=== PATIENT | female | born 1945 | race Caucasian/White ===

== ENCOUNTER 2020-07-29 17:10 | Emergency (ER) | payer OTHER ==
[2020-07-29 17:36] VITALS: TEMP 97.9; BMI 26.4
[2020-07-29 22:52] VITALS: BP 109/70; PULSE 62
== END 2020-07-29 22:53 | disposition home or self-care (01) ==
LOC: JER 17:10
DX: G89.18 Other acute postprocedural pain (principal); R19.5 Other fecal abnormalities
CPT/HCPCS: 36415; 82272; 99283-25

== ENCOUNTER 2021-08-02 22:05 | Observation (INO) | payer OTHER ==
[2021-08-02 22:17] VITALS: BMI 26.4
[2021-08-02 23:32] LABS: BASO % 0.5 % (0-2.0); EOS % 1.9 % (0-4.5); HEMATOCRIT 37.1 % (32.4-45.2); HEMOGLOBIN 12.7 GM/dL (10.7-15.3); LYMPH % 41.9 % (8-40); MCHC 34.3 g/dl (32.0-36.0); MEAN CELL VOLUME 90.3 fl (80-96); MEAN PLT VOLUME 9.3 fl (7.5-11.1); MONO % 8.4 % (3.8-10.2); NEUT % 47.3 % (42.8-82.8); PLATELET COUNT 270 10^3/uL (134-434); RBC 4.11 M/mm3 (3.60-5.2); RDW 12.6 % (11.6-15.6); WHITE BLOOD COUNT 6.3 K/mm3 (4.0-10.0)
[2021-08-02 23:40] LABS: INR 1.01 (0.83-1.09); PROTHROMBIN TIME (PATIENT) 11.6 SEC (9.7-13.0)
[2021-08-02 23:43] LABS: ACTIVATED PTT 29.7 SECONDS (25.2-36.5)
[2021-08-02 23:51] LABS: ALBUMIN 3.4 g/dl (3.4-5.0)
[2021-08-02 23:53] LABS: CREATININE 0.7 mg/dL (0.55-1.3)
[2021-08-02 23:55] LABS: BILIRUBIN,TOTAL 0.2 mg/dL (0.2-1); TOT PROT 6.7 g/dl (6.4-8.2)
[2021-08-03] MEDS ORDERED: ACETAMINOPHEN 1000 MG/100 ML BAG IVPB ONE (00:15)
[2021-08-03] MEDS ORDERED: LIDOCAINE 5% TOPICAL PATCH TP ONE (00:15)
[2021-08-03] MEDS ORDERED: LIDOCAINE 5% TOPICAL PATCH ONE (00:26)
[2021-08-03] MEDS ORDERED: ACETAMINOPHEN INJECTION 100 ML IVPB ONE (00:26)
[2021-08-03 01:10] LABS: CALCIUM 9.1 mg/dL (8.5-10.1)
[2021-08-03 01:11] LABS: ALBUMIN 3.4 g/dl (3.4-5.0); BLOOD UREA NITROGEN 21.1 mg/dL (7-18)
[2021-08-03 01:14] LABS: CREATININE 0.7 mg/dL (0.55-1.3)
[2021-08-03 01:16] LABS: BILIRUBIN,TOTAL 0.2 mg/dL (0.2-1); TOT PROT 6.5 g/dl (6.4-8.2)
[2021-08-03] MEDS ORDERED: ACETAMINOPHEN 325 MG TABLET (FP) PO PRN (06:00)
[2021-08-03] MEDS ORDERED: LEVOTHYROXINE NA 50 MCG TABLET (FP) PO SCH (07:00)
[2021-08-03] MEDS ORDERED: LEVOTHYROXINE NA 25 MCG TABLET (FP) ONE (07:31)
[2021-08-03] MEDS ORDERED: PANTOPRAZOLE 40 MG TABLET ONE (09:27)
[2021-08-03] MEDS ORDERED: PARoxetine HCL 10 MG TABLET ONE (09:28)
[2021-08-03] MEDS ORDERED: CLOPIDOGREL BISULFATE 75 MG TABLET (FP) ONE (09:28)
[2021-08-03] MEDS ORDERED: ASPIRIN COATED 81 MG TABLET.EC ONE (09:28)
[2021-08-03] MEDS ORDERED: PAROXETINE HCL 20 MG, PAROXETINE HCL 10 MG PO SCH (10:00)
[2021-08-03] MEDS ORDERED: ASPIRIN COATED 81 MG TABLET.EC PO SCH (10:00)
[2021-08-03] MEDS ORDERED: CLOPIDOGREL BISULFATE 75 MG TABLET (FP) PO SCH (10:00)
[2021-08-03] MEDS ORDERED: PARoxetine HCL 30 MG TABLET PO SCH (10:00)
[2021-08-03] MEDS ORDERED: PANTOPRAZOLE 40 MG TABLET PO SCH (10:00)
[2021-08-03 16:41] VITALS: BP 130/70; PULSE 71; TEMP 98.2
[2021-08-03] MEDS ORDERED: ATORVASTATIN CA 20 MG TABLET (FP) PO SCH (22:00)
[2021-08-03] MEDS ORDERED: LIDOCAINE PATCH REMOVAL MC SCH (22:00)
== END 2021-08-03 17:15 | disposition home or self-care (01) ==
LOC: JER 22:05 → JERBED 08-03 02:41
PROVIDERS: ADMIT Internal Medicine; ATTEND Family Medicine
PROC: 3E033NZ Introduction of Analgesics, Hypnotics, Sedatives into Peripheral Vein, Percutaneous Approach (ICD-10-PCS; principal; 2021-08-03)
DX: I25.10 Atherosclerotic heart disease of native coronary artery without angina pectoris (principal); I11.9 Hypertensive heart disease without heart failure; E11.9 Type 2 diabetes mellitus without complications; Z95.5 Presence of coronary angioplasty implant and graft; I77.1 Stricture of artery; E07.9 Disorder of thyroid, unspecified; E78.00 Pure hypercholesterolemia, unspecified; Z87.891 Personal history of nicotine dependence; M54.59 Other low back pain; R10.9 Unspecified abdominal pain
CPT/HCPCS: 36415; 71045-TC-FY; 71275-TC; 73502-TC-LT-FY; 74174-TC; 80053; 82550; 82553; 82962; 84484; 85025; 85610; 85730; 93005; 93010; 96374; 99285-25; C9803; G0378; U0003; U0005